=== PATIENT | male | born 1965 | race Caucasian/White ===

== ENCOUNTER 2020-11-11 18:45 | Observation (INO) | payer MEDICARE, SELFPAY ==
[2020-11-11] VITALS (11 sets, daily range): BP systolic 105–158; BP diastolic 63–108; PULSE 63–108; RESP 15–32; TEMP 36.7–36.9; O2SAT 94–100; BMI 26.6
--- NOTE | ~2020-11-11 | XR_ITS ---
XR chest 1V portable 11/11/2020 19:22 Indication: Chest pain Procedure: AP portable chest Comparison: No prior studies for comparison. Findings: Heart size normal. No focal air space disease, pulmonary edema, pleural effusion or suspect ed pneumothorax. No acute osseous abnormality. Impression: 1: No acute cardiopulmonary disease. Reviewed, dictated and finalized at location A. MANAGER Impression: 1: No acute cardiopulmonary disease.
--- NOTE | ~2020-11-11 | CT_ITS ---
EXAMINATION: CTA chest abdomen pelvis DATE: 11/11/2020 20:53 MECHANICAL CAD DRAFTER INDICATION: Chest pain TECHNIQUE: Computed tomographic angiography (CTA) of the chest, abdomen, and pelvis was performed wit hout and with 100 mL Omnipaque-350 intravenous contrast. The dose-length product was 881.34 mGy-cm. M aximum intensity projection 3D-reconstructions of the aorta and other arteries were constructed by rik calix technologist on a separate workstation. Automated exposure control and iterative reconstruction technique were employed. COMPARISON: CT dated 07/02/2013. FINDINGS: CHEST CTA: Bibasilar dependent atelectasis. Mild paraseptal emphysema. No endobronchial lesions. No evidence for aortic aneurysm or dissection. No large central pulmonary emboli. No thoracic lymphadenopathy. No pn eumothorax. No suspicious pulmonary nodules/masses. ABDOMEN AND PELVIS CTA: There is a hypodense 1.6 cm mass near the dome of the liver in the right hepatic lobe with peripheral nodular enhancement, compatible with hemangioma. The spleen, pancreas, adrenal glands and kidneys ar e unremarkable. Gallbladder is present. Nonobstructive bowel gas pattern. There is moderate atheroscl erosis of the distal abdominal aorta without aneurysm. No lymphadenopathy. Nonobstructive bowel gas p attern. Colonic diverticulosis without evidence for diverticulitis. Normal appendix. No free air or f ree fluid. No acute osseous abnormality. The celiac axis, SMA and renal arteries are normal. IMPRESSION: 1. No evidence for aortic aneurysm or dissection. Moderate atherosclerosis of the distal abdominal ao rta. 2: No acute abnormality of the chest, abdomen or pelvis. Reviewed, dictated and finalized at location A. ANICAL CAD DRAFTER IMPRESSION: 1. No evidence for aortic aneurysm or dissection. Moderate atherosclerosis of t he distal abdominal aorta. 2: No acute abnormality of the chest, abdomen or pelvis.
--- NOTE | 2020-11-11 18:51 | ECG_ITS ---
Measurements Intervals [place] Rate: 99 P: 65 [place]: 139 QRS: 32 QRSD: 93 T: 35 QT: 339 QTc: 436 Interpretive Statements SINUS RHYTHM VENTRICULAR PREMATURE COMPLEXES POSSIBLE LEFT ATRIAL ENLARGEMENT MINIMAL Q WAVES- ANTEROLATERAL LEADS CANNOT RULE OUT SEPTAL INFARCT, AGE INDETERMINATE BORDERLINE ST ABNORMALITY- INFERIOR LEADS BASELINE ARTIFACT- II, III, AVF ABNORMAL ECG Electronically Signed On 11-12-2020 7:50:45 COMMUNITY DIRECTOR by Frederick Rubi D.O.
[2020-11-11] MEDS: MORPHINE SULFATE (*CRX) 2 MG/ML INJ IV PUSH (18:53)
[2020-11-11] MEDS: NITROGLYCERIN SL 0.4 MG TABLET 1.2 MG (18:55)
[2020-11-11] MEDS: ASPIRIN 81 MG CHEWABLE TABLET 243 MG PO (18:55)
--- NOTE | 2020-11-11 18:57 | ED.CHESTPAIN ---
HPI - Chest Pain General Chief Complaint: Chest Pain Stated Complaint: chest pain Time Seen by Provider: 11/11/20 18:49 Source: patient Mode of arrival: wheelchair Limitations: no limitations History of Present Illness HPI narrative: 55-year-old man with a history of hypertension and coronary artery disease status post stent comes in today complaining of chest pain that he describes as heaviness that has been present for last 2 hours. Patient states this started when he got worked up over some family matters. His daughter states that he is prone to minimizing his symptoms and was complaining of pain radiating to the back of his neck earlier this evening. He states that he was supposed to have another stent for blocked artery but he has not done it yet. He states that he feels sweaty, lightheaded, short of breath and nauseated. He states he has had similar symptoms in the past that were to his heart disease but has not had any of these symptoms for last few months. MD complaint: chest pain Pertinent past history: coronary artery disease Onset (ago): hour(s) (2) Timing of current episode: constant Prior episodes: Yes Onset: other (emotionally upset) Pain location: substernal Pain radiation: none Severity: severe Quality: heaviness Relieving factors: nothing Exacerbating factors: nothing Associated symptoms: nausea, diaphoresis and dyspnea Treatment prior to arrival: none Risk Factors Coronary artery disease risk factors: smoking history Related Data Home Medications Medication Instructions Recorded Confirmed atorvastatin 80 mg PO HS 11/11/20 11/11/20 carvedilol [Coreg] 3.125 mg PO BID 11/11/20 11/11/20 clonazepam 0.5 mg PO DAILY PRN 11/11/20 11/11/20 divalproex 1,500 mg PO DAILY 11/11/20 11/11/20 ramipril 10 mg PO DAILY 11/11/20 11/11/20 ziprasidone HCl 40 mg PO HS 11/11/20 11/11/20 Allergies Allergy/AdvReac Type Severity Reaction Status Date / Time No Known Allergies Allergy Verified 11/11/20 19:44 Review of Systems Constitutional: Constitutional: Denies chills, Denies fever(s) and Denies weakness ENT: Denies dysphagia, Denies nasal congestion and Denies sore throat Cardiovascular: Cardiovascular: Reports chest pain and Denies radiating jaw, neck or arm pain Respiratory: Respiratory: Denies cough, Reports dyspnea and Denies wheezing Gastrointestinal: Gastrointestinal: Denies abdominal pain, Reports nausea and Denies vomiting Musculoskeletal: Musculoskeletal: Denies arthralgias and Denies joint swelling Integumentary/Breasts: Skin/Breast: Denies pruritus, Denies erythema and Denies rash Neurologic: Denies vertigo, Denies dizziness and Denies syncope Hematologic/Lymphatic: Hematologic/Lymphatic: Denies easy bleeding and Denies easy bruising Allergic/Immunologic: Allergic/Immunologic: Denies lip swelling and Denies tongue swelling PMFSH Past Medical History Medical History Anxiety CAD (coronary artery disease) Dyslipidemia Hypertension Surgical History Surgical History History of coronary artery stent placement Social History Social History Smoking status: Former smoker Alcohol intake: never Substance use: never Living arrangements: with family Gender identity (if verbalized by the patient): Male Sexual Orientation (if Verbalized by the Patient): Straight or Heterosexual Spiritual care concerns: No Exam Const: Other: Moderate to severe acute distress. Anxious. HENMT: Mouth: Yes moist mucous membranes Throat: posterior oropharynx normal Eyes: Conjunctivae: conjunctivae normal Pupils: Equal, round and reactive pupils present EOM: EOMs intact bilaterally Chest: Chest palpation & inspection: normal inspection of the chest Resp: Effort & Inspection: normal respiratory effort and not labored Auscultation: bautista
--- NOTE | 2020-11-11 19:00 | PC.NURSE ---
AFTER PATIENT IN ROOM HR FROM 108 DOWN TO 78 AND RR FROM 32 DOWN TO 17 - NSR WITH PVC ON EKG - PT STILL TALKING ABOUT HOW MUCH THE DRUGS IN THIS AREA ARE AFFECTING HIM, STATES HE TALKS TO THE TASK FORCE
[2020-11-11] MEDS: ONDANSETRON INJ 4 MG/2 ML VIAL IV PUSH (19:07)
[2020-11-11] MEDS: LORazepam INJ (*CRX) 2 MG/ML VIAL 0.5 MG IV PUSH (19:18)
[2020-11-11 19:24] LABS: Basophils Absolute Auto 0.08 K/mm3 (0.00-0.10); Basophils Percent Auto 0.6 % (0.0-1.0); Eosinophils Absolute Auto 0.11 K/mm3 (0.02-0.50); Eosinophils Percent Auto 0.9 % (1.0-6.0); Hematocrit 40.1 % (40.0-54.0); Hemoglobin 13.2 g/dL (14.0-18.0); Immature Granulocyte Absolute 0.06 K/mm3 (0.00-0.00); Immature Granulocyte Percent A 0.5 % (0.0-0.0); Lymphocytes Absolute Auto 1.69 K/mm3 (1.10-4.50); Lymphocytes Percent Auto 13.7 % (18.0-42.0); Mean Corpuscular HGB Conc 32.9 g/dL (32.0-36.0); Mean Corpuscular Hemoglobin 31.2 pg (27.0-31.0); Mean Corpuscular Volume 94.8 fL (78.0-102.0); Mean Platelet Volume 10.1 fl (8.7-11.0); Monocytes Absolute Auto 0.64 K/mm3 (0.10-0.90); Monocytes Percent Auto 5.2 % (2.0-11.0); Neutrophils Absolute Auto 9.8 K/mm3 (1.7-7.2); Neutrophils Percent Auto 79.1 % (50.0-70.0); Platelet Count Result 253 K/mm3 (150-420); Red Blood Count 4.23 M/mm3 (4.70-6.10); Red Cell Distribution Width 13.6 % (11.6-14.4); White Blood Count 12.3 K/mm3 (4.8-10.8)
[2020-11-11 19:36] LABS: BNP 63.3 pg/mL (0-100)
[2020-11-11] MEDS: METOPROLOL TARTRATE INJ 5 MG/5 ML VIAL IV PUSH (19:39)
[2020-11-11 19:40] LABS: D Dimer 0.48 mg/L (0.19-0.50); Partial Thromboplastin Time 25.9 SEC (23.90-30.70); Prothrombin Time 10.9 Seconds (9.50-12.10)
[2020-11-11 19:48] LABS: Alanine Aminotransferase 19 U/L (16-63); Albumin Level 3.8 g/dL (3.4-5.0); Alkaline Phosphatase 76 U/L (46-116); Anion Gap 10 mmol/L (8-16); Aspartate Amino Transferase 15 U/L (15-37); Bilirubin,Total 0.1 mg/dL (0.00-1.00); Blood Urea Nitrogen 15 mg/dL (7-18); Calcium 8.8 mg/dL (8.5-10.1); Carbon Dioxide 25 mmol/L (21-32); Chloride 103 mmol/L (98-108); Estimated Glomerular Filt Rate > 60; Glucose 101 mg/dL (70-99); Lipase 101 U/L (73-393); Osmolality Calculated 286 mOsm/kg (285-295); Sodium 138 mmol/L (136-145); Total Protein 7.4 g/dL (6.4-8.2); Troponin I 29.1 ng/L (0.00-60.4)
[2020-11-11 19:50] LABS: Ethanol 3 mg/dL (0-6)
[2020-11-11 20:54] LABS: Add Urine Microscopic? YES; Appearance Urine Clear (Clear); Bilirubin Urine Negative (Negative); Blood Urine 1+ (Negative); Color Urine Yellow (Yellow); Glucose Urine UA Negative (Negative); Ketones Urine Negative (Negative); Leukocyte Esterase Ur Negative LEU/UL (Negative); Nitrate Urine Negative (Negative); Protein Urine Negative (Negative); Specific Grav Ur >= 1.030 (1.010-1.020); Urobilinogen Urine 0.2 mg/dL (0.2-1.0)
--- NOTE | 2020-11-11 20:59 | PC.NURSE ---
PAIN 8/ - 1ST NITRO PAIN 6/ - 2ND NITRO PAIN 02/24 - 3RD NITRO PAIN 01/24
[2020-11-11 21:01] LABS: Amphetamine Screen Urine Negative (Negative); Barbiturate Screen Urine Negative (Negative); Benzodiazepines Screen Urine Positive (Negative); Cannabinoid Screen Urine Positive (Negative); Cocaine Screen Urine Negative (Negative); Methadone Screen Urine Negative (Negative); Opiate Screen Urine Positive (Negative); Phencyclidine Screen Urine Negative (Negative); RBC Urine 0-2 /hpf (0-2); Squamous Epithelial Cell Urine Many /hpf (Few); WBC Urine None seen /hpf (0-3)
[2020-11-11 21:02] LABS: Hyaline Casts Urine 15-19 /lpf
--- NOTE | 2020-11-11 22:00 | ADMGEN ---
This patient, Jose Florentino, was admitted to 2nd Floor Room 207-1. Patient/family oriented to hospital policies and general routines including ID bracelet, bed and alarms, visiting hours, pain management, procedures, bathroom and other care routines, personal items, smoking policy, room service/diet, and visiting hours. Information on how to activate the Rapid Response Team has been discussed. Patient/Family are encouraged to report perceived risks to care and to ask questions if they do not understand what they are told or what they should do.
[2020-11-11 22:30] LABS: Troponin I 1128.1 ng/L (0.00-60.4)
--- NOTE | 2020-11-11 22:45 | ECG_ITS ---
Measurements Intervals [place] Rate: 62 P: 67 VT: 144 QRS: 62 QRSD: 97 T: 58 QT: 419 QTc: 428 Interpretive Statements SINUS RHYTHM MINIMAL Q WAVES- DIFFUSE LEADS BORDERLINE ECG Electronically Signed On 11-13-2020 7:19:18 ESTIMATOR AND DRAFTER SUPERVISOR by Frederick Rubi D.O.
--- NOTE | 2020-11-11 23:06 | PC.NURSE ---
Lab reported critical trop result. notified. Patient VS stable, telemetry shows sinus rhythm. EKG obtained Placed on nasal cannula at 2 liters. Lovenox given as ordered
--- NOTE | 2020-11-11 23:09 | PM.IMHP ---
H&P: HPI History of Present Illness Date/Time: 11/11/20 23:09 Chief Complaint: Chest pain Narrative: 55-year-old man with a history of coronary artery disease status post stents, hypertension, dyslipidemia and a past history of smoking admitted to the floor after he presented the emergency department with chest pain that he described as heaviness in his chest that it began about an hour half prior to presentation. Patient states that it started while he was worked up about some family matters and he was also very anxious. He stated that he was having nausea, sweating and shortness of breath with the chest pain. His daughter stated that he had some pain radiating to the back of his neck prior to arrival but the patient denied that at the time of exam. He denies syncope, recent cough or cold symptoms, fever, vomiting, and recent sick exposures. Patient was given aspirin, sublingual nitro x3, 5 mg of metoprolol IV, and oxygen and shortly thereafter his chest pain resolved completely. Patient was admitted to the floor for serial enzymes and monitoring. Review of Systems Constitutional: Constitutional: Denies chills, Denies fever(s) and Denies weakness Eyes: Eyes: Denies change in vision and Denies diplopia ENT: Denies nasal congestion, Denies sore throat and Denies throat swelling Cardiovascular: Cardiovascular: Reports chest pain, Reports rapid heart rate and Reports dyspnea Respiratory: Respiratory: Denies cough, Denies hemoptysis, Reports dyspnea and Denies wheezing Gastrointestinal: Gastrointestinal: Denies abdominal pain, Denies diarrhea, Reports nausea and Denies vomiting Genitourinary: Genitourinary: Denies hematuria and Denies dysuria Musculoskeletal: Musculoskeletal: Denies back pain, Denies arthralgias and Denies joint swelling Integumentary/Breasts: Skin/Breast: Denies lesions, Denies erythema and Denies rash Neurologic: Denies confusion, Denies vertigo, Denies dizziness, Denies syncope, Reports headache(s) (After takling NTG in the ED.) and Denies numbness Psychiatric: Psychiatric: Reports anxiety and Reports irritability Hematologic/Lymphatic: Hematologic/Lymphatic: Denies easy bleeding and Denies easy bruising Allergic/Immunologic: Allergic/Immunologic: Denies urticaria, Denies lip swelling and Denies throat swelling PMFSH Past Medical History Medical History Anxiety CAD (coronary artery disease) Dyslipidemia Hypertension Surgical History Surgical History History of coronary artery stent placement Social History Social History Smoking status: Former smoker Alcohol intake: never Substance use: never Living arrangements: with family Gender identity (if verbalized by the patient): Male Sexual Orientation (if Verbalized by the Patient): Straight or Heterosexual Spiritual care concerns: No Meds Home Medications and Allergies Home Medications Medication Instructions Recorded Confirmed Type atorvastatin 80 mg PO HS 11/11/20 11/11/20 History carvedilol [Coreg] 3.125 mg PO BID 11/11/20 11/11/20 History clonazepam 0.5 mg PO DAILY PRN 11/11/20 11/11/20 History divalproex 1,500 mg PO DAILY 11/11/20 11/11/20 History ramipril 10 mg PO DAILY 11/11/20 11/11/20 History ziprasidone HCl 40 mg PO HS 11/11/20 11/11/20 History Allergies Allergy/AdvReac Type Severity Reaction Status Date / Time No Known Allergies Allergy Verified 11/11/20 19:44 Vital Signs Vital Signs - 24 hr 11/11/20 18:45 11/11/20 19:34 11/11/20 19:39 Temperature 36.9 C Pulse Rate 108 H 71 74 Respiratory Rate 32 H 16 Blood Pressure 158/108 H 149/96 H Pulse Oximetry 99 97 11/11/20 19:43 11/11/20 20:06 11/11/20 20:48 Temperature Pulse Rate 73 Respiratory Rate Blood Pressure 119/90 110/84 122/88 Pulse Oximetry 99 11/11/20
[2020-11-11] MEDS: ENOXAPARIN 100 MG/ML SYRINGE 75 MG SUB-Q (23:10)
[2020-11-11] MEDS: SIMVASTATIN 10 MG TABLET 80 MG (23:10)
[2020-11-11] MEDS: clonazePAM (*CRX) 0.5 MG TABLET PO (23:11)
[2020-11-12] VITALS: BP 102/73; PULSE 63; RESP 16; TEMP 36.9; O2SAT 100
--- NOTE | 2020-11-12 01:15 | PC.NURSE ---
Notified by [facility] bed was available for patient . Will be admitted to room [address]. [facility] notified. Patient is alert and oriented. pain rated at 0 on 0 to 10 scale. telemetry shows sinus rhythm with PVC's Patient alert and oriented x3. Picked up transfer at 0100.
== END 2020-11-12 01:25 | disposition short-term general hospital (02) ==
LOC: CHSED 18:51 → CHS2ND 21:20
PROVIDERS: Admitting Provider Emergency Medicine; Emergency Provider Emergency Medicine; PCP Family Medicine; Visit Provider Emergency Medicine
DX: I21.4 Non-ST elevation (NSTEMI) myocardial infarction (principal); I25.10 Atherosclerotic heart disease of native coronary artery without angina pectoris; I10 Essential (primary) hypertension; E78.5 Hyperlipidemia, unspecified; F41.9 Anxiety disorder, unspecified; Z87.891 Personal history of nicotine dependence; Z79.899 Other long term (current) drug therapy
CPT/HCPCS: 36415; 71045; 71275; 74174; 80053; 80307; 81001; 83690; 83880; 84484; 85025; 85380; 85610; 85730; 93005; 96372; 96374; 96375; 99285; A9270; G0378; G0379; J1650; J2060; J2270; J2405; Q9965; Q9967

== ENCOUNTER 2022-05-05 15:21 | Emergency (ER) | payer MEDICARE, SELFPAY ==
--- NOTE | ~2022-05-05 | CT_ITS ---
EXAMINATION: CT abdomen pelvis wo con DATE: 05/05/2022 16:02 INDICATION: diarrhea with nausea and vomiting x 1 day TECHNIQUE: Computed tomography (CT) of the abdomen and pelvis was performed without intravenous contr ast. Automated exposure control and iterative reconstruction technique were employed. The dose-length product was 499.99 mGy-cm. COMPARISON: 11/11/2020. FINDINGS: Lower thorax: Severe coronary artery calcification and/or stents. Liver: Right lobe hemangioma. Biliary/Gallbladder: Gallbladder is normal. No bile duct dilation. Pancreas: No mass or duct dilation. Spleen: Normal. Adrenals:No mass. Kidneys: No mass, stone, or hydronephrosis. GI tract: No small or large bowel dilation. Normal appendix. Diverticulosis without diverticulitis. C olonic submucosal fat, most evident in the sigmoid and rectum, as can be seen with chronic IBD, obesi ty, chemotherapy treatment, and celiac disease. Mesentery/Peritoneum: No ascites, mass, or free air. Retroperitoneum: No mass. Atherosclerotic abdominal aortic and/or arterial calcifications. 2.5 cm fus iform infrarenal abdominal aortic aneurysm. Pelvis: Pelvic organs are within normal limits. Soft Tissues: Soft tissues and body wall unremarkable. Bones: No acute osseous finding. IMPRESSION: No acute abdominopelvic process. Reviewed, dictated and finalized at location K.
[2022-05-05 15:30] VITALS: BP 117/77; PULSE 78; RESP 18; TEMP 36.6; O2SAT 96
[2022-05-05 15:57] LABS: Eosinophils Absolute Auto 0.09 K/mm3 (0.02-0.50); Eosinophils Percent Auto 0.9 % (1.0-6.0); Hematocrit 38.4 % (40.0-54.0); Hemoglobin 13.3 g/dL (14.0-18.0); Immature Granulocyte Absolute 0.03 K/mm3 (0.00-0.00); Immature Granulocyte Percent A 0.3 % (0.0-0.0); Lymphocytes Absolute Auto 2.31 K/mm3 (1.10-4.50); Mean Corpuscular HGB Conc 34.6 g/dL (32.0-36.0); Mean Corpuscular Hemoglobin 31.6 pg (27.0-31.0); Mean Corpuscular Volume 91.2 fL (78.0-102.0); Mean Platelet Volume 9.9 fl (8.7-11.0); Monocytes Absolute Auto 0.83 K/mm3 (0.10-0.90); Monocytes Percent Auto 8.3 % (2.0-11.0); Neutrophils Absolute Auto 6.7 K/mm3 (1.7-7.2); Neutrophils Percent Auto 66.5 % (50.0-70.0); Platelet Count Result 242 K/mm3 (150-420); Red Blood Count 4.21 M/mm3 (4.70-6.10); Red Cell Distribution Width 13.1 % (11.6-14.4)
[2022-05-05 16:04] VITALS: BP 111/70; PULSE 79
[2022-05-05 16:05] VITALS: BP 113/76; PULSE 72
[2022-05-05 16:08] VITALS: BP 108/78; PULSE 71
[2022-05-05 16:12] LABS: Alanine Aminotransferase 23 U/L (16-63); Albumin Level 4.2 g/dL (3.4-5.0); Alkaline Phosphatase 95 U/L (46-116); Anion Gap 11 mmol/L (8-16); Aspartate Amino Transferase 21 U/L (15-37); Bilirubin,Total 0.5 mg/dL (0.00-1.00); Blood Urea Nitrogen 49 mg/dL (7-18); Calcium 8.7 mg/dL (8.5-10.1); Carbon Dioxide 21 mmol/L (21-32); Chloride 101 mmol/L (98-108); Estimated CRCL calculation 32 ml/min; Estimated Glomerular Filt Rate 31; Glucose 104 mg/dL (70-99); Lipase 299 U/L (73-393); Osmolality Calculated 289 mOsm/kg (285-295); Potassium 4.3 mmol/L (3.5-5.1); Sodium 133 mmol/L (136-145); Total Protein 7.8 g/dL (6.4-8.2)
[2022-05-05] MEDS: SODIUM CHLORIDE 0.9% IV 1,000 ML 999 ML IV CONT (16:14)
[2022-05-05] MEDS: PANTOPRAZOLE SODIUM IV 40 MG VIAL IV PUSH (16:15)
[2022-05-05] MEDS: ONDANSETRON INJ 4 MG/2 ML VIAL IV PUSH (16:17)
[2022-05-05 16:23] LABS: Appearance Urine Clear (Clear); Bilirubin Urine 1+ (Negative); Color Urine Yellow (Yellow); Glucose Urine UA Negative (Negative); Ketones Urine Trace (Negative); Leukocyte Esterase Ur Negative LEU/UL (Negative); Nitrate Urine Negative (Negative); Protein Urine Negative (Negative); Specific Grav Ur >= 1.030 (1.010-1.020); Urobilinogen Urine 0.2 mg/dL (0.2-1.0); pH Urine 5.5 (5.0-8.0)
[2022-05-05 16:48] LABS: Add Urine Microscopic? YES; Blood Urine Trace-Intact (Negative)
[2022-05-05 16:49] LABS: Bacteria Urine 1+ /hpf; Hyaline Casts Urine 15-19 /lpf; Squamous Epithelial Cell Urine None seen /hpf (Few); WBC Urine 0-3 /hpf (0-3)
[2022-05-05 17:00] VITALS: BP 136/70; PULSE 68; RESP 16; TEMP 36.6; O2SAT 97
[2022-05-05 17:40] LABS: SARS-CoV-2 RNA PCR Negative (Negative)
--- NOTE | 2022-05-05 18:14 | ED.NAVMDI ---
HPI - Nausea/Vomiting/Diarrhea General Chief complaint: Nausea/Vomiting/Diarrhea Stated complaint: heat exhaustion Time Seen by Provider: 05/05/22 15:25 Source: patient and RN notes reviewed Mode of arrival: ambulatory Limitations: no limitations History of Present Illness MD elicited complaint: nausea Onset (ago): day(s) (3) Description of diarrhea: watery Associated nausea: Yes Quality: cramping Exacerbating factors: none Relieving factors: none Associated symptoms: nausea/vomiting Related Data Home Medications Medication Instructions Recorded Confirmed atorvastatin 80 mg tablet 80 mg PO HS 11/11/20 05/05/22 carvedilol 3.125 mg tablet (Coreg) 3.125 mg PO BID 11/11/20 05/05/22 clonazepam 0.5 mg tablet 0.5 mg PO DAILY PRN Anxiety 11/11/20 05/05/22 Allergies Allergy/AdvReac Type Severity Reaction Status Date / Time No Known Allergies Allergy Verified 05/05/22 15:42 Review of Systems Review of Systems: All systems reviewed & are unremarkable except as noted in HPI and below Constitutional: Constitutional: Reports no additional constitutional complaints Eyes: Eyes: Reports no additional eye complaints ENT: Reports system reviewed and no additional complaints, except as documented Cardiovascular: Cardiovascular: Reports no additional cardiovascular complaints Respiratory: Respiratory: Reports no additional respiratory complaints Gastrointestinal: Gastrointestinal: Reports no additional gastrointestinal complaints Musculoskeletal: Musculoskeletal: Reports no additional musculoskeletal complaints Integumentary/Breasts: Skin/Breast: Reports system reviewed and no additional complaints, except as docu Neurologic: Reports system reviewed and no additional complaints, except as documented Psychiatric: Psychiatric: Reports no additional psychiatric complaints Endocrine: Endocrine: Reports no additional endocrine complaints Hematologic/Lymphatic: Hematologic/Lymphatic: Reports no additional hematologic/lymphatic complaints Allergic/Immunologic: Allergic/Immunologic: Reports no additional allergic/immunologic complaints [facility] Past Medical History Medical History (Updated 05/06/22 @ 00:23 by Elba Whitney MD) Anxiety CAD (coronary artery disease) Dyslipidemia Heat cramp, initial encounter Hypertension Surgical History Surgical History History of coronary artery stent placement Social History Social History Smoking status: Former smoker Alcohol intake: never Substance use: never Gender identity (if verbalized by the patient): Male Sexual Orientation (if Verbalized by the Patient): Straight or Heterosexual Spiritual care concerns: No Exam Const: General: healthy appearing and no acute distress Nutritional Appearance: well nourished Orientation/consciousness: patient oriented x3 Limitations: no limitations HENMT: Head: normal to inspection Ears: external ears normal, TM's normal bilaterally and EAC's normal General nose exam: Normal external nose present and Normal nares present Face and sinus: normal facial exam and sinuses nontender Mouth: Yes Normal oral and palatal mucosa present and Yes moist mucous membranes Teeth and gingiva: dentition normal Throat: posterior oropharynx normal Eyes: Conjunctivae: conjunctivae normal Pupils: Equal, round and reactive pupils present EOM: EOMs intact bilaterally Neck: Neck: normal visual inspection, no lymphadenopathy and no meningeal signs Chest: Chest palpation & inspection: normal inspection of the chest Resp: Effort & Inspection: normal respiratory effort Auscultation: clear to auscultation bilaterally Cardio: Rate: regular rate Rhythm: regular rhythm GI: GI Palp: Yes Soft to palpation and No Tenderness to palpation present (GI) Auscultation: normal bowel sounds : General: Yes bladder normal to palpation and Y
[2022-05-05 18:23] VITALS: BP 148/80; PULSE 70; RESP 18; TEMP 36.4; O2SAT 97
== END 2022-05-05 18:25 | disposition home or self-care (01) ==
PROVIDERS: Emergency Provider Emergency Medicine; PCP Family Medicine
DX: T67.2XXA Heat cramp, initial encounter (principal); Z20.822 Contact with and (suspected) exposure to COVID-19; F41.9 Anxiety disorder, unspecified; I25.10 Atherosclerotic heart disease of native coronary artery without angina pectoris; E78.5 Hyperlipidemia, unspecified; I10 Essential (primary) hypertension; Z87.891 Personal history of nicotine dependence
CPT/HCPCS: 36415; 74176; 80053; 81001; 83690; 85025; 96361; 96374; 96375; 99284; C9113; C9803; J2405; J7030; U0003; U0005

== ENCOUNTER 2022-10-12 08:51 | Emergency (ER) | payer MEDICARE, SELFPAY ==
--- NOTE | ~2022-10-12 | XR_ITS ---
XR chest 1V portable DATE: 10/12/2022 09:46 INDICATION: Congestion TECHNIQUE: Portable chest, one view COMPARISON: 11/11/2020 portable AP chest 11/11/2020 CTA chest abdomen pelvis FINDINGS: Normal heart size. No hilar or mediastinal enlargement. No pulmonary infiltrate or consolid ation, pleural effusion or pulmonary vascular congestion or pneumothorax. IMPRESSION: No active cardiopulmonary disease Reviewed, dictated and finalized at location A. STANT BUYER
--- NOTE | ~2022-10-12 | CT_ITS ---
EXAMINATION: CT abdomen pelvis wo con DATE: 10/12/2022 09:45 INDICATION: Abdominal pain. Diarrhea for 3 days. TECHNIQUE: Computed tomography (CT) of the abdomen and pelvis was performed without intravenous contr ast. Automated exposure control and iterative reconstruction technique were employed. Exam dose: 608 .55 mGy-cm total exam DLP. COMPARISON: 05/05/2022 CT abdomen pelvis FINDINGS: The lung bases are clear of infiltrate or consolidation. Normal heart size. Prominent coronary artery calcifications. No pericardial or pleural effusion. The liver, gallbladder, bile ducts, spleen, pancreas and pancreatic duct are unremarkable. No pancrea tic calcification. Normal morphology of the adrenal glands. No renal mass lesion or urinary tract calculus or hydroureteronephrosis.. Normal caliber but atherosclerotic calcification of the abdominal aorta, iliac and femoral arteries. No intraperitoneal or retroperitoneal or pelvic mass lesion or adenopathy or ascites. Urinary bladder is evacuated. The prostate gland appears unremarkable. Small bilateral fat-containing inguinal hernias. Mild colonic diverticulosis; no CT evidence of diverticulitis. Normal appendix. There are scattered small bowel air-fluid levels and fluid level in the transverse c olon without abnormal dilatation, suggesting possible enterocolitis. No intraperitoneal free air. Small fat-containing umbilical hernia. No suspicious osteolytic or osteoblastic lesions. IMPRESSION: Scattered small bowel and colon air-fluid levels which may be due to enterocolitis; no b owel obstruction or free air Normal appendix Mild colonic diverticulosis; no evidence of diverticulitis Prominent coronary artery calcifications Reviewed, dictated and finalized at Location A. Reviewed, dictated and finalized at location A. TRONEURODIAGNOSTIC TECHNOLOGIST IMPRESSION: Scattered small bowel and colon air-fluid levels which may be due to enterocolitis; no bowel obstruction or free air Normal appendix Mild colonic diverticulosis; no evidence of diverticulitis Prominent coronary artery calcifications
[2022-10-12 09:15] VITALS: BP 104/68; PULSE 77; RESP 16; TEMP 37.1; O2SAT 98
[2022-10-12 09:36] VITALS: BP 95/68
[2022-10-12 09:37] VITALS: BP 89/65
[2022-10-12] MEDS: IPRATROPIUM 0.5 MG/ALBUTEROL SULFATE 2.5 MG AMPUL.NEB 3 ML INHALATION (09:53)
[2022-10-12] MEDS: SODIUM CHLORIDE 0.9% IV 1,000 ML 999 ML IV CONT (09:55)
[2022-10-12 09:56] LABS: Basophils Absolute Auto 0.04 K/mm3 (0.00-0.10); Basophils Percent Auto 0.5 % (0.0-1.0); Eosinophils Absolute Auto 0.01 K/mm3 (0.02-0.50); Eosinophils Percent Auto 0.1 % (1.0-6.0); Hematocrit 40.5 % (40.0-54.0); Hemoglobin 13.2 g/dL (14.0-18.0); Immature Granulocyte Absolute 0.03 K/mm3 (0.00-0.00); Immature Granulocyte Percent A 0.4 % (0.0-0.0); Lymphocytes Absolute Auto 0.73 K/mm3 (1.10-4.50); Mean Corpuscular HGB Conc 32.6 g/dL (32.0-36.0); Mean Corpuscular Hemoglobin 31.3 pg (27.0-31.0); Monocytes Absolute Auto 0.68 K/mm3 (0.10-0.90); Monocytes Percent Auto 8.4 % (2.0-11.0); Neutrophils Absolute Auto 6.6 K/mm3 (1.7-7.2); Neutrophils Percent Auto 81.6 % (50.0-70.0); Platelet Count Result 232 K/mm3 (150-420); Red Blood Count 4.22 M/mm3 (4.70-6.10); Red Cell Distribution Width 13.3 % (11.6-14.4); White Blood Count 8.1 K/mm3 (4.8-10.8)
[2022-10-12] MEDS: ONDANSETRON INJ 4 MG/2 ML VIAL IV PUSH (09:56)
[2022-10-12] MEDS: PANTOPRAZOLE SODIUM IV 40 MG VIAL IV PUSH (09:56)
[2022-10-12] MEDS: methylPREDNISolone SOD SUCC 125 MG VIAL IV PUSH (09:56)
[2022-10-12 10:11] LABS: Alanine Aminotransferase 24 U/L (16-63); Albumin Level 3.5 g/dL (3.4-5.0); Alkaline Phosphatase 61 U/L (46-116); Anion Gap 10 mmol/L (8-16); Aspartate Amino Transferase 26 U/L (15-37); Bilirubin,Total 0.3 mg/dL (0.00-1.00); Blood Urea Nitrogen 24 mg/dL (7-18); Calcium 8.8 mg/dL (8.5-10.1); Carbon Dioxide 25 mmol/L (21-32); Chloride 99 mmol/L (98-108); Estimated Glomerular Filt Rate 38; Glucose 172 mg/dL (70-99); Lipase 189 U/L (73-393); Osmolality Calculated 286 mOsm/kg (285-295); Potassium 3.9 mmol/L (3.5-5.1); Sodium 134 mmol/L (136-145); Total Protein 7.9 g/dL (6.4-8.2)
[2022-10-12 10:14] LABS: Influenza A QL RT-PCR Positive (Negative); Influenza B QL RT-PCR Negative (Negative); SARS-CoV-2 RNA PCR Negative (Negative)
[2022-10-12 10:28] LABS: Strep Group A RT-PCR Not Detected (Negative)
--- NOTE | 2022-10-12 10:52 | ED.NAVMDI ---
HPI - Nausea/Vomiting/Diarrhea General Chief complaint: Nausea/Vomiting/Diarrhea Stated complaint: SOB/Cough/diarrhea for 2 days now Time Seen by Provider: 10/12/22 08:54 Source: patient and RN notes reviewed Mode of arrival: ambulatory Limitations: no limitations History of Present Illness MD elicited complaint: nausea, diarrhea and other (also mild SOB and coughing. no documented fever) Onset (ago): day(s) (3) Description of vomiting: other (no vomiting) Description of diarrhea: semi-solid Associated nausea: Yes Associated abdominal pain: Yes Location of pain: periumbilical Radiation: diffuse Pain consistency: colicky Severity: mild Pain scale (0-10): 3 Quality: cramping and dull Exacerbating factors: none Relieving factors: none Associated symptoms: headaches and shortness of breath Related Data Home Medications Medication Instructions Recorded Confirmed atorvastatin 80 mg tablet 80 mg PO HS 11/11/20 10/12/22 carvedilol 3.125 mg tablet (Coreg) 3.125 mg PO BID 11/11/20 10/12/22 clonazepam 0.5 mg tablet 0.5 mg PO DAILY PRN Anxiety 11/11/20 10/12/22 Allergies Allergy/AdvReac Type Severity Reaction Status Date / Time No Known Allergies Allergy Verified 10/12/22 09:21 Review of Systems Review of Systems: All systems reviewed & are unremarkable except as noted in HPI and below Constitutional: Constitutional: Reports no additional constitutional complaints Eyes: Eyes: Reports no additional eye complaints ENT: Reports system reviewed and no additional complaints, except as documented Cardiovascular: Cardiovascular: Reports no additional cardiovascular complaints Respiratory: Respiratory: Reports cough and Reports dyspnea Gastrointestinal: Gastrointestinal: Reports abdominal pain, Reports diarrhea and Reports nausea Musculoskeletal: Musculoskeletal: Reports no additional musculoskeletal complaints Integumentary/Breasts: Skin/Breast: Reports system reviewed and no additional complaints, except as docu Neurologic: Reports system reviewed and no additional complaints, except as documented Psychiatric: Psychiatric: Reports no additional psychiatric complaints Endocrine: Endocrine: Reports no additional endocrine complaints Hematologic/Lymphatic: Hematologic/Lymphatic: Reports no additional hematologic/lymphatic complaints Allergic/Immunologic: Allergic/Immunologic: Reports no additional allergic/immunologic complaints PMFSH Past Medical History Medical History Anxiety CAD (coronary artery disease) Dyslipidemia Heat cramp, initial encounter Hypertension Surgical History Surgical History History of coronary artery stent placement Social History Social History Smoking status: Former smoker Alcohol intake: never Substance use: never Gender identity (if verbalized by the patient): Male Sexual Orientation (if Verbalized by the Patient): Straight or Heterosexual Spiritual care concerns: No Exam Const: General: healthy appearing, no acute distress and well nourished Nutritional Appearance: well nourished Orientation/consciousness: patient oriented x3 Limitations: no limitations HENMT: Head: normal to inspection Ears: external ears normal, TM's normal bilaterally and EAC's normal Face/Nose/Sinus: Normal external nose present, Normal nares present, normal facial exam and sinuses nontender Face and sinus: normal facial exam and sinuses nontender Mouth: Yes Normal oral and palatal mucosa present and Yes moist mucous membranes Teeth and gingiva: dentition normal Throat: posterior oropharynx normal Eyes: Conjunctivae: conjunctivae normal Pupils: Equal, round and reactive pupils present EOM: EOMs intact bilaterally Neck: Neck: normal visual inspection, no lymphadenopathy and no meningeal signs Chest: Chest palpation & ins
[2022-10-12 11:27] VITALS: BP 110/77; PULSE 75; RESP 16; TEMP 36.8; O2SAT 98
[2022-10-12 11:38] VITALS: O2SAT 100
[2022-10-12 11:45] VITALS: BP 110/77; PULSE 75; RESP 16; TEMP 37.1; O2SAT 98
== END 2022-10-12 11:45 | disposition home or self-care (01) ==
PROVIDERS: Emergency Provider Emergency Medicine
DX: K52.9 Noninfective gastroenteritis and colitis, unspecified (principal); J40 Bronchitis, not specified as acute or chronic; Z20.822 Contact with and (suspected) exposure to COVID-19
CPT/HCPCS: 36415; 71045; 74176; 80053; 83690; 85025; 87502; 87651; 96361; 96374; 96375; 99284; C9113; J2405; J2930; J7030; U0003; U0005

== ENCOUNTER 2023-05-11 11:19 | Emergency (ER) | payer MEDICARE, SELFPAY ==
[2023-05-11] VITALS (10 sets, daily range): BP systolic 122–178; BP diastolic 78–132; PULSE 85–102; RESP 17–20; TEMP 36.6–37.2; O2SAT 94–98
--- NOTE | 2023-05-11 11:23 | ED.GENADULT ---
HPI - General Adult General Chief complaint: Unspecified Stated complaint: Throat Time Seen by Provider: 05/11/23 11:21 Source: patient and family Mode of arrival: ambulatory Limitations: no limitations History of Present Illness HPI narrative: he woke up at 3:00 a.m. with nasal congestion and fullness in the back of his throat and with change in his voice. however his daughter says his voice sounds normal for him. He always has somewhat of hoarse voice. Patient has had a postnasal drip. Denies cough sore throat fever difficulty breathing rash or itching bleeding or bruising swelling lumps or bumps dizziness or lightheadedness problems eating drinking stooling. This morning just in 1 to eat or drink or talk very much. Patient states overall symptoms are getting better. Feels like he is not swallowing normally. Patient to use Chloraseptic spray and saltwater gargles which helped this morning. He has been on Tylenol ibuprofen for a sore left shoulder and is scheduled for MRI of his left shoulder tomorrow. Patient denies any other complaints. Related Data Home Medications Medication Instructions Recorded Confirmed atorvastatin 80 mg tablet 80 mg PO HS 11/11/20 05/11/23 carvedilol 3.125 mg tablet (Coreg) 3.125 mg PO BID 11/11/20 05/11/23 clonazepam 0.5 mg tablet 0.5 mg PO DAILY PRN Anxiety 11/11/20 05/11/23 Allergies Allergy/AdvReac Type Severity Reaction Status Date / Time No Known Allergies Allergy Verified 05/11/23 11:21 Review of Systems Review of Systems: patient states just took his medications before he came in for hypertension. Denies any other complaints. All systems reviewed & are unremarkable except as noted in HPI and below ( HPI) [facility] Past Medical History Medical History Anxiety CAD (coronary artery disease) Dyslipidemia Heat cramp, initial encounter Hypertension Surgical History Surgical History History of coronary artery stent placement Social History Social History Smoking status: Former smoker Alcohol intake: never Substance use: never Living arrangements: with family Gender identity (if verbalized by the patient): Male Sexual Orientation (if Verbalized by the Patient): Straight or Heterosexual Spiritual care concerns: No Exam Narrative: White Male no apparent distress with hoarse voice.? Head:? Normocephalic atraumatic.? Eyes conjunctiva pink sclera nonicteric.? Oropharynx is clear with moist mucous membranes no exudates . Tongue is normal size.? uvula may be slightly enlarged or it may be normal for him. no lip swelling Neck is supple no lymphadenopathy nontender full range of motion.? Back is nontender.? Chest nontender.? Lungs are clear without wheezes rales or rhonchi.? Heart is regular rate rhythm without murmurs gallops or rubs.? Abdomen soft and nontender no hepatosplenomegaly or masses no CVA tenderness no abdominal bruits.? Extremities no cyanosis clubbing or edema.? Neurological she is alert and oriented x4 motor and sensory grossly intact.? Skin is warm and dry without lesions Or rash. Medical Decision Making MDM Narrative Medical decision making narrative: Independent Historian: daughter POA Differential Dx includes but not limited to: viral URI, strep throat, angioedema less likely Medications were Reviewed: medications reviewed,patient is not on any Sarwat inhibitors. Medications, treatment, ED course: strep screen was obtained which was negative. Patient drank half of Pepsi said his sensation felt better. 12:34 p.m. he drank the rest the Pepsi felt even better. Independently Interpreted by me: External Source Review: Shared decision Making: Evaluation was discussed with patient and his daughter all questions were asked and answered and plan was agreed upon. Was discussed th
--- NOTE | 2023-05-11 11:27 | PC.NURSE ---
patient reports he has not been taking his blood pressure medication as prescribed. he states he took it this morning prior to coming in.
[2023-05-11 12:05] LABS: Strep Group A RT-PCR NOT DETECTED (Negative)
== END 2023-05-11 13:09 | disposition home or self-care (01) ==
PROVIDERS: Emergency Provider Emergency Medicine
DX: J06.9 Acute upper respiratory infection, unspecified (principal); J02.9 Acute pharyngitis, unspecified; F41.9 Anxiety disorder, unspecified; I25.10 Atherosclerotic heart disease of native coronary artery without angina pectoris; E78.5 Hyperlipidemia, unspecified; I10 Essential (primary) hypertension; Z87.891 Personal history of nicotine dependence
CPT/HCPCS: 87651; 99283

== ENCOUNTER 2023-11-02 09:27 | Emergency (ER) | payer MEDICARE, SELFPAY ==
[2023-11-02] VITALS (26 sets, daily range): BP systolic 107–159; BP diastolic 72–114; PULSE 64–116; RESP 8–20; TEMP 36.4–37; O2SAT 95–99
--- NOTE | ~2023-11-02 | CT_ITS ---
EXAMINATION: CT abdomen pelvis w con DATE: 11/02/2023 11:55 INDICATION: Abdominal pain. Nausea and vomiting. TECHNIQUE: Computed tomography (CT) of the abdomen and pelvis was performed with 100 cc Omnipaque 350 intravenous contrast. The dose-length product was 540.09 mGy-cm. Automated exposure control and iter ative reconstruction technique were employed. COMPARISON: CT dated 10/12/2022 FINDINGS: Lung bases are unremarkable. Heart size normal. No significant pleural or pericardial effus ion. Moderate atherosclerosis of the aorta with ectasia. Aorta measures up to 2.5 cm. There is a 1.5 cm left renal cyst. Mild fatty infiltration of the liver. Focal enhancing lesion near the dome of the liver involving the right hepatic lobe measuring 1.5 cm. The spleen, pancreas, adrenal glands and right kidney are unrem arkable. Gallbladder is present. Nonobstructive bowel pattern. Colonic diverticulosis without evidenc e for diverticulitis. Normal appendix. No free air or free fluid. Enlarged prostate gland. No abnorma l pelvic masses or fluid collections. No lymphadenopathy. There is mild lower thoracic and lumbar spo ndylosis. IMPRESSION: 1. No acute abdominal abnormality. 2: Enhancing 1.5 cm liver mass. In the absence of known malignancy this is likely benign. Reviewed, dictated and finalized at location A. ION BEAMER IMPRESSION: 1. No acute abdominal abnormality. 2: Enhancing 1.5 cm liver mass. In the absence of known malignancy this is like ly benign.
--- NOTE | ~2023-11-02 | XR_ITS ---
EXAMINATION: XR chest 2V 11/02/2023 11:54 INDICATION: Cough. Hypertension. PROCEDURE: 2 view chest COMPARISON: 10/12/2022 FINDINGS: The lungs are clear. The cardiomediastinal silhouette is within normal limits. There are no pleural effusions. There is no pneumothorax suspected. IMPRESSION: 1: NO ACUTE CARDIOPULMONARY DISEASE. Reviewed, dictated and finalized at location A. N RESCUE LIEUTENANT
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
--- NOTE | 2023-11-02 09:59 | ECG_ITS ---
Measurements Intervals [place] Rate: 69 P: 46 NJ: 140 QRS: 25 QRSD: 93 T: 30 QT: 367 QTc: 395 Interpretive Statements SINUS RHYTHM NORMAL ECG COMPARED TO ECG 11/11/2020 22:59:42 NO SIGNIFICANT CHANGES Electronically Signed On 11-03-2023 17:03:10 TAR DISTRIBUTOR OPERATOR by Bartolo Welsh M.D.
[2023-11-02 10:37] LABS: Basophils Absolute Auto 0.08 K/mm3 (0.00-0.10); Basophils Percent Auto 0.9 % (0.0-1.0); Eosinophils Absolute Auto 0.14 K/mm3 (0.02-0.50); Eosinophils Percent Auto 1.5 % (1.0-6.0); Hematocrit 47.2 % (40.0-54.0); Hemoglobin 15.9 g/dL (14.0-18.0); Immature Granulocyte Absolute 0.03 K/mm3 (0.00-0.00); Immature Granulocyte Percent A 0.3 % (0.0-0.0); Lymphocytes Absolute Auto 1.61 K/mm3 (1.10-4.50); Lymphocytes Percent Auto 17.3 % (18.0-42.0); Mean Corpuscular HGB Conc 33.7 g/dL (32.0-36.0); Mean Corpuscular Hemoglobin 30.9 pg (27.0-31.0); Mean Corpuscular Volume 91.8 fL (78.0-102.0); Mean Platelet Volume 9.8 fl (8.7-11.0); Monocytes Absolute Auto 0.52 K/mm3 (0.10-0.90); Monocytes Percent Auto 5.6 % (2.0-11.0); Neutrophils Percent Auto 74.4 % (50.0-70.0); Platelet Count Result 275 K/mm3 (150-420); Red Blood Count 5.14 M/mm3 (4.70-6.10); Red Cell Distribution Width 13.5 % (11.6-14.4); White Blood Count 9.3 K/mm3 (4.8-10.8)
[2023-11-02 11:01] LABS: Prothrombin Time 10.7 Seconds (9.50-12.10)
[2023-11-02] MEDS: ONDANSETRON INJ 4 MG/2 ML VIAL IV PUSH (11:03)
[2023-11-02 11:07] LABS: Appearance Urine Clear (Clear); Bilirubin Urine Negative (Negative); Blood Urine Trace-Intact (Negative); Color Urine Light Yellow (Yellow); Glucose Urine UA Negative (Negative); Ketones Urine Negative (Negative); Leukocyte Esterase Ur Negative LEU/UL (Negative); Nitrate Urine Negative (Negative); Protein Urine Negative (Negative); Specific Grav Ur >= 1.030 (1.010-1.020); Urobilinogen Urine 0.2 mg/dL (0.2-1.0)
[2023-11-02 11:13] LABS: Alanine Aminotransferase 19 U/L (16-63); Albumin Level 4.3 g/dL (3.4-5.0); Alkaline Phosphatase 90 U/L (46-116); Anion Gap 7 mmol/L (8-16); Aspartate Amino Transferase 11 U/L (15-37); Bilirubin,Total 0.3 mg/dL (0.00-1.00); Blood Urea Nitrogen 25 mg/dL (7-18); Calcium 9.6 mg/dL (8.5-10.1); Carbon Dioxide 27 mmol/L (21-32); Chloride 99 mmol/L (98-108); Estimated CRCL calculation 48 ml/min; Estimated Glomerular Filt Rate 52; Glucose 117 mg/dL (70-99); Lipase 99 U/L (16-77); Osmolality Calculated 281 mOsm/kg (285-295); Potassium 4.3 mmol/L (3.5-5.1); Sodium 133 mmol/L (136-145); Total Protein 8.2 g/dL (6.4-8.2); Troponin I 5.5 ng/L (0.00-60.4)
[2023-11-02 11:18] LABS: Add Urine Microscopic? YES; RBC Urine 0-2 /hpf (0-2)
[2023-11-02 11:19] LABS: Amorphous Sediment Urine Moderate; Bacteria Urine Trace /hpf; SARS-CoV-2 RNA PCR Negative (Negative)
[2023-11-02 11:21] LABS: Influenza A QL RT-PCR Negative (Negative); Influenza B QL RT-PCR Negative (Negative); RSV RNA, RT-PCR Negative (Negative)
[2023-11-02] MEDS: LORazepam (*CRX) 1 MG TABLET PO (13:05)
[2023-11-02 13:42] LABS: Troponin I 5.5 ng/L (0.00-60.4)
== END 2023-11-02 14:15 | disposition home or self-care (01) ==
PROVIDERS: Emergency Provider Student in an Organized Health Care Education/Training Program
DX: K64.9 Unspecified hemorrhoids (principal); R10.9 Unspecified abdominal pain; I25.10 Atherosclerotic heart disease of native coronary artery without angina pectoris; E78.5 Hyperlipidemia, unspecified; I10 Essential (primary) hypertension; F41.9 Anxiety disorder, unspecified; Z87.891 Personal history of nicotine dependence; Z20.822 Contact with and (suspected) exposure to COVID-19
CPT/HCPCS: 36415; 71046; 74177; 80053; 81001; 83690; 84484; 85025; 85610; 85730; 87637; 93005; 96374; 99284; A9270; J2405; Q9967

== ENCOUNTER 2024-11-25 15:15 | Emergency (ER) | payer MEDICARE, SELFPAY ==
--- NOTE | ~2024-11-25 | XR_ITS ---
EXAM: XR shoulder LT min 2V DATE: 11/25/2024 15:45 HISTORY: shoulder injury . COMPARISON: None available. FINDINGS: Normal mineralization. No fracture or dislocation. No lytic or blastic lesion. Joint space s are maintained. No erosion or periosteal change. Soft tissues within normal limits. IMPRESSION: No acute osseous finding in the left shoulder. Reviewed, dictated and finalized at location K. ER STEWARD
--- NOTE | ~2024-11-25 | XR_ITS ---
HISTORY: elbow injury slipped on ice COMPARISON: None TECHNIQUE: 3 views of the left elbow were performed FINDINGS: No acute fracture is identified. No elevation of the anterior or posterior fat pads are identified to suggest a supracondylar fracture . Overlying soft tissues are unremarkable. Bone mineralization is age-appropriate. IMPRESSION: No acute fracture or dislocation, as detailed above. Reviewed, dictated and finalized at location A. LY PRACTITIONER
[2024-11-25 15:20] VITALS: BP 150/98; PULSE 112; RESP 20; TEMP 36.6; O2SAT 97
[2024-11-25] MEDS: MORPHINE SULFATE (*CRX) 4 MG/ML INJ IM (15:34)
[2024-11-25] MEDS: ACETAMINOPHEN 500 MG TABLET 1000 MG PO (15:44)
--- NOTE | 2024-11-25 15:49 | PC.NURSE ---
MORPHINE ORDER NOT ADMINISTERED TO PT. MEDICATION DRAWN UP AT BEDSIDE AND PT REMEMBERED ADVERSE REACTION TO THE MEDICATION IN THE PAST. MD NOTIFIED AND ORDER CANCELLED. MEDICATION HAS BEEN ADDED TO ALLERGY LIST. ALTERNATIVE PAIN RELIEF ADMINISTERED.
--- NOTE | 2024-11-25 16:00 | ED.UPPEXIN ---
HPI - Extremity Injury (Upper) General Chief Complaint: Extremity Injury, Upper Stated Complaint: FALL Time Seen by Provider: 11/25/24 15:26 Source: patient Mode of arrival: ambulatory Limitations: no limitations History of Present Illness HPI narrative: this is a 59-year-old male that presents after he had a fall earlier this afternoon on a patch of ice directly onto his left elbow causing pain and swelling has good range of motion all tender with movement and palpation with no numbness or tingling. complaint: injury to: left Onset (ago): hour(s) Other Extremity Injury: Left: elbow ( pain with tenderness) Handedness: right Place: outdoors Severity: moderate Related Data Home Medications ?Medication ?Instructions ?Recorded ?Confirmed ?Last Taken ?Type atorvastatin 80 mg tablet 80 mg PO HS 11/11/20 05/11/23 Unknown History carvedilol 3.125 mg tablet (Coreg) 3.125 mg PO BID 11/11/20 05/11/23 Unknown History clonazepam 0.5 mg tablet 0.5 mg PO DAILY PRN Anxiety 11/11/20 05/11/23 Unknown History Allergies Allergy/AdvReac Type Severity Reaction Status Date / Time Opioids - Morphine Analogues AdvReac Intermediate HIVES Verified 11/25/24 15:51 Review of Systems Review of Systems: All systems reviewed & are unremarkable except as noted in HPI and below PMFSH Past Medical History Medical History Heat cramp, initial encounter Anxiety Dyslipidemia Hypertension CAD (coronary artery disease) Surgical History Surgical History History of coronary artery stent placement Social History Social History Smoking status: Former smoker Alcohol intake: never Substance use: never Living arrangements: with family Gender identity (if verbalized by the patient): Male Sexual Orientation (if Verbalized by the Patient): Straight or Heterosexual Spiritual care concerns: No Exam Const: General: healthy appearing Nutritional Appearance: well nourished Orientation/consciousness: patient oriented x3 Limitations: no limitations Resp: Effort & Inspection: normal respiratory effort Auscultation: clear to auscultation bilaterally Cardio: Rate: regular rate Rhythm: regular rhythm Skin: General skin exam: normal color Rashes: no rashes Wounds: no wounds Neuro: General: patient oriented x3, moves all extremities, no meningeal signs and no focal motor deficits Extrem: Other: Has tenderness palpation movement of the left elbow Course Course Emergency Course: patient states he has allergies to morphine and he is currently on blood thinners for history of CAD, patient received 1g p.o. Tylenol and x-rays performed showed no acute fractures. Sarwat applied. Vital Signs Vital signs: Vital Signs Temperature 36.6 C 11/25/24 15:20 Pulse Rate 112 H 11/25/24 15:20 Respiratory Rate 20 11/25/24 15:20 Blood Pressure 150/98 H 11/25/24 15:20 Pulse Oximetry 97 11/25/24 15:20 Oxygen Delivery Room Air 11/25/24 15:20 Temperature 36.6 C 11/25/24 15:20 Pulse Rate 112 H 11/25/24 15:20 Respiratory Rate 20 11/25/24 15:20 Blood Pressure 150/98 H 11/25/24 15:20 Pulse Oximetry 97 11/25/24 15:20 Oxygen Delivery Room Air 11/25/24 15:20 Critical Care Time Critical Care Time Critical Care Time: No Discharge Plan Discharge Clinical Impression: Elbow strain Qualifiers: Encounter type: initial encounter Laterality: left Qualified Code(s): S56.912A - Strain of unspecified muscles, fascia and tendons at forearm level, left arm, initial encounter Patient Disposition: Home, Self-Care Condition: Stable Instructions: Antibiotic Form, Elbow Strain (ED) Additional Instructions: advised patient to take Tylenol as needed and to follow with primary if symptoms persist or worsen. Patient Language: Faroese Prescriptions: No Action clonazepam 0.5 mg tablet 0.5 mg PO DAILY PRN (Reason: Anxiety) atorvastatin 80 mg Tablet 80 mg PO HS carvedilol [Coreg] 3.125 mg Tablet 3.125 mg PO BID oseltamivir [Tamiflu] 75 mg capsule 75 mg PO Q12H 5 Days Qty: 10 0RF amoxicillin 875 mg tablet 875 mg PO Q12H Qty: 20 0RF Mucinex DM 30-600 mg tablet extended release 12 hr 1 tablet PO Q12H PRN (Reason: cough) Qty: 20 0RF methylprednisolone [Medrol (Santos)] 4 mg tablets,dose pack See Rx Instructions .ROUTE .COMPLEX Qty: 21 0RF Rx Instructions: orally per package directions albuterol sulfate [Ventolin HFA] 90 mcg/actuation HFA aerosol inhaler 2 puff inhalation QID Qty: 8.5 0RF ondansetron 4 mg tablet,disintegrating 4 mg PO Q8H Qty: 20 0RF omeprazole magnesium [Prilosec OTC] 20 mg tablet,delayed release (DR/EC) 20 mg PO BID Qty: 20 0RF acetaminophen [Tylenol] 325 mg capsule 650 mg PO Q8H Qty: 20 0RF penicillin V potassium 250 mg tablet 500 mg PO Q12H 10 Days Qty: 40 0RF Follow-up/Referrals: UNKNOWN,DOCTOR [Primary Care Provider] - Time of Disposition: 16:04
== END 2024-11-25 16:13 | disposition home or self-care (01) ==
LOC: CHSED 16:07
PROVIDERS: Emergency Provider Emergency Medicine; PCP Family Medicine
DX: S56.912A Strain of unspecified muscles, fascia and tendons at forearm level, left arm, initial encounter (principal); W00.0XXA Fall on same level due to ice and snow, initial encounter; I10 Essential (primary) hypertension; I25.10 Atherosclerotic heart disease of native coronary artery without angina pectoris; E78.5 Hyperlipidemia, unspecified; F41.9 Anxiety disorder, unspecified; Z95.5 Presence of coronary angioplasty implant and graft; Z87.891 Personal history of nicotine dependence; Z79.51 Long term (current) use of inhaled steroids
CPT/HCPCS: 73030; 73080; 96372; 99283; A4565; J2270